=== PATIENT | female | born 1970 | race Asian ===

== ENCOUNTER 2021-03-18 10:23 | Outpatient (CLI) | payer BC ==
[2021-03-19 11:48] LABS: SARS-CoV-2 PCR by NAA Not Detected (NotDetected)
== END 2021-03-18 10:24 | disposition home or self-care (01) ==
LOC: LABBT 10:23
PROVIDERS: ATTEND Neurological Surgery
DX: Z01.812 Encounter for preprocedural laboratory examination (principal); M54.16 Radiculopathy, lumbar region; Z20.822 Contact with and (suspected) exposure to COVID-19
CPT/HCPCS: U0003; U0005

== ENCOUNTER 2021-03-20 10:57 | Day surgery (SDC) | payer OTHER ==
[2021-03-19 10:36] VITALS: BMI 29.0
[2021-03-20] MEDS ORDERED: Midazolam HCl 2 mg/2 ml Vial ONE (12:46)
[2021-03-20] MEDS ORDERED: Lidocaine 1% PF 5 ML VIAL ONE (13:15)
[2021-03-20] MEDS ORDERED: PROPOFOL 200 MG/20 ML VIAL ONE (13:15)
[2021-03-20] MEDS ORDERED: Ondansetron PF 4 MG/2 ML Vial ONE (13:15)
== END 2021-03-20 16:05 | disposition home or self-care (01) ==
LOC: SDC/OP 10:57 → EDSTATUS 13:00 → SDC/OP 16:05
PROVIDERS: ATTEND Neurological Surgery
DX: M51.16 Intervertebral disc disorders with radiculopathy, lumbar region (principal); M48.061 Spinal stenosis, lumbar region without neurogenic claudication; M50.123 Cervical disc disorder at C6-C7 level with radiculopathy; Z88.0 Allergy status to penicillin; Z88.1 Allergy status to other antibiotic agents
CPT/HCPCS: 72141; 72148; J2250

== ENCOUNTER 2023-05-12 09:59 | Outpatient (CLI) | payer BC, OTHER ==
[2023-05-12 11:05] LABS: Hemoglobin 14.1 g/dL (12.0-15.5); Mean Corpuscular HGB CONC 32.8 g/dL (32.0-36.0); Mean Corpuscular Hemoglobin 28.2 pg (27.0-33.0); Mean Platelet Volume 9.5 fl (7.4-10.4); Platelet Count 218 10x3/uL (150-450); RBC Distribution Width 12.1 % (11.5-14.5); White Blood Cell (WBC) Count 6.6 10x3/uL (3.5-10.5)
[2023-05-12 11:19] LABS: Anion Gap 16 mmol/L (10-20); BUN (Urea Nitrogen) 13 mg/dL (7.0-18.7); Calc. Creatinine Clearance 0 mL/min (70-130); Calcium 9.5 mg/dL (7.8-10.44); Carbon Dioxide 23 mmol/L (22-29); Chloride 103 mmol/L (98-107); Estimated GFR 97; Glucose 167 mg/dL (70-105); Potassium 4.3 mmol/L (3.5-5.1); Sodium 138 mmol/L (136-145)
== END 2023-05-12 10:00 | disposition home or self-care (01) ==
LOC: LABBT 09:59
PROVIDERS: ATTEND Neurological Surgery
DX: Z01.812 Encounter for preprocedural laboratory examination (principal); M54.12 Radiculopathy, cervical region
CPT/HCPCS: 80048; 85027

== ENCOUNTER 2023-05-16 07:30 | Observation (INO) | payer BC, OTHER ==
[2023-05-12 10:23] VITALS: BMI 31.3
[2023-05-16] MEDS ORDERED: Lidocaine 1% MPF 2 ML VIAL ONE (09:14)
[2023-05-16] MEDS ORDERED: Sodium Chloride 0.9% 100 ML ONE (09:14)
[2023-05-16] MEDS ORDERED: CEFAZOLIN 2 GM VIAL ONE (09:14)
[2023-05-16] MEDS ORDERED: SUGAMMADEX SODIUM 200 MG/2 ML VIAL ONE ×2 (10:24→11:39)
[2023-05-16] MEDS ORDERED: Fentanyl 250 MCG/5 ML VIAL ONE ×2 (10:24→12:06)
[2023-05-16] MEDS ORDERED: Ketorolac Tromethamine 30 MG/ML VIAL ONE (10:47)
[2023-05-16] MEDS ORDERED: PHENYLEPHRINE-NS 100 MCG/ML 10 ML SYRINGE ONE (10:47)
[2023-05-16] MEDS ORDERED: Rocuronium Bromide 10 MG/ML (10ML VIAL) ONE (10:47)
[2023-05-16] MEDS ORDERED: Dexamethasone 20 MG/5 ML VIAL ONE (10:47)
[2023-05-16] MEDS ORDERED: Lidocaine 1% PF 5 ML VIAL ONE (10:47)
[2023-05-16] MEDS ORDERED: PROPOFOL 200 MG/20 ML VIAL ONE (10:47)
[2023-05-16] MEDS ORDERED: ePHEDrine Sulfate 50 MG/10 ML VIAL ONE (10:47)
[2023-05-16] MEDS ORDERED: Ondansetron PF 4 MG/2 ML Vial ONE ×2 (10:47)
[2023-05-16] MEDS ORDERED: Acetaminophen 325 MG TAB PO PRN (11:43)
[2023-05-16] MEDS ORDERED: Acetaminophen/Codeine 30-300mg Tablet PO PRN (11:43)
[2023-05-16] MEDS ORDERED: Promethazine 25 MG TAB PO PRN (11:43)
[2023-05-16] MEDS ORDERED: traMADol HCl 50 MG TAB PO PRN (11:43)
[2023-05-16] MEDS ORDERED: Morphine 2 MG/ML VIAL SLOW IVP PRN (11:43)
[2023-05-16] MEDS ORDERED: diphenhydrAMINE 50 MG/ML VIAL IVP PRN (11:43)
[2023-05-16] MEDS ORDERED: Milk Of Magnesia 30 ML UDCUP PO PRN (11:43)
[2023-05-16] MEDS ORDERED: Ondansetron PF 4 MG/2 ML Vial IVP PRN (11:43)
[2023-05-16] MEDS ORDERED: Mag-Al 1200 mg/1200 mg/30 ML UDCUP PO PRN (11:43)
[2023-05-16] MEDS ORDERED: Cyclobenzaprine 10 MG TAB PO PRN (11:43)
[2023-05-16] MEDS ORDERED: clonazePAM 0.5 MG TAB PO PRN (11:45)
[2023-05-16] MEDS ORDERED: Glucagon 1 MG/ML KIT IM PRN (11:47)
[2023-05-16] MEDS ORDERED: Dextrose 50% Abboject 50 ML SYRINGE SLOW IVP PRN (11:47)
[2023-05-16] MEDS ORDERED: Dextrose 5% in Water 1,000 ML IV PRN (11:47)
[2023-05-16] MEDS ORDERED: Promethazine HCl 25 MG/ML VIAL ONE (12:06)
[2023-05-16] MEDS ORDERED: Promethazine HCl 25 MG/ML VIAL IM PRN (12:12)
[2023-05-16] MEDS ORDERED: Ondansetron HCl/PF 4 MG/2 ML Vial IVP PRN (12:12)
[2023-05-16] MEDS: Sodium Chloride 0.9% 1,000 ML IV SCH (13:08)
[2023-05-16] MEDS ORDERED: Loratadine 10 MG TAB PO PRN (13:57)
[2023-05-16] MEDS: metFORMIN 500 MG TAB PO SCH (16:29)
[2023-05-16] MEDS: HumaLOG 300 UNITS/3 ML VIAL SC PRN ×2 (18:08→21:03)
[2023-05-16] MEDS: CEFAZOLIN 2 GM in Sodium Chloride 0.9% 100 ML IVPB SCH (18:09)
[2023-05-16] MEDS ORDERED: Sertraline 100 MG TAB PO SCH (21:00)
[2023-05-16] MEDS: Acetaminophen/Codeine 30-300mg Tablet PO PRN (21:02)
[2023-05-17] MEDS: Sodium Chloride 0.9% 1,000 ML IV SCH (01:28)
[2023-05-17] MEDS: CEFAZOLIN 2 GM in Sodium Chloride 0.9% 100 ML IVPB SCH (01:28)
[2023-05-17] MEDS ORDERED: Levothyroxine Sodium 125 MCG TAB PO SCH (06:00)
[2023-05-17] MEDS: Acetaminophen/Codeine 30-300mg Tablet PO PRN (06:38)
[2023-05-17] MEDS ORDERED: glipiZIDE 10 MG TAB PO SCH (07:30)
[2023-05-17 08:11] VITALS: BP 103/71; TEMP 98
[2023-05-17] MEDS ORDERED: Pioglitazone HCl 15 MG TAB PO SCH (09:00)
[2023-05-17] MEDS ORDERED: Fish Oil 1,000 MG CAP PO SCH (09:00)
[2023-05-17] MEDS ORDERED: Multivit, Therapeutic 1 TAB PO SCH (09:00)
[2023-05-17] MEDS ORDERED: Bupropion 150 MG XL TAB PO SCH (09:00)
[2023-05-17] MEDS ORDERED: Cholecalciferol 1,000 UNITS (25 MCG) TAB PO SCH (09:00)
[2023-05-17] MEDS: metFORMIN 500 MG TAB PO SCH (09:24)
== END 2023-05-17 10:25 | disposition home or self-care (01) ==
LOC: SDC 07:30 → SURG A 11:49
PROVIDERS: ADMIT Neurological Surgery; ATTEND Neurological Surgery
PROC: 0RG1070 Fusion of Cervical Vertebral Joint with Autologous Tissue Substitute, Anterior Approach, Anterior Column, Open Approach (ICD-10-PCS; principal; 2023-05-16)
DX: M50.823 Other cervical disc disorders at C6-C7 level (principal); I10 Essential (primary) hypertension; E11.9 Type 2 diabetes mellitus without complications; E03.9 Hypothyroidism, unspecified; D64.9 Anemia, unspecified; F41.9 Anxiety disorder, unspecified; Z79.4 Long term (current) use of insulin; Z79.84 Long term (current) use of oral hypoglycemic drugs; Z79.890 Hormone replacement therapy; Z79.899 Other long term (current) drug therapy; Z90.710 Acquired absence of both cervix and uterus; Z88.0 Allergy status to penicillin; Z88.1 Allergy status to other antibiotic agents
CPT/HCPCS: 36416; C1713; J1100; J1815; J1885; J2405; J2550; J2704; J3010; J3490; J7050